=== PATIENT | male | born 1955 | race Caucasian/White ===

== ENCOUNTER 2016-10-14 13:26 | Day surgery (SDC) | payer OTHER ==
[~2016-10-14] VITALS: Ht 182.9 cm; Wt 82.0 kg
[~2016-10-14 13:26] MED LIST: DESO15CR25 TOP; DOXA4TAB2 PO; ESCI20TA PO; FENT1PAT6 TRANSDERM; FEXO-15 PO; FLUT9.9S NS; LISI-571 PO; Lactated Ringer's 1,000 ML IV ONE; MORP15TA PO; OMEP40CA36 PO; SCOP1PAT TD; SUMA50TA31 PO; TOPI50TA32 PO
[2016-10-14] MEDS ORDERED: fentaNYL-PF 50 mCg/mL 2 mL Inj ONE (13:27)
[2016-10-14] MEDS ORDERED: Propofol 10,000 mCg/mL 20 mL Inj ONE (13:27)
[2016-10-14 13:43] VITALS: BP 119/82; PULSE 95; RESP 16; O2SAT 95
[2016-10-14] MEDS ORDERED: Lactated Ringer's 1,000 ML IV ONE (14:28)
[2016-10-14 14:52] VITALS: BP 85/62; PULSE 67; RESP 14; O2SAT 92
[2016-10-14 14:57] VITALS: BP 86/64; PULSE 73; RESP 14; O2SAT 94
--- NOTE | 2016-10-14 14:59 | PCM.ANEP1 ---
Post Anesthesia PACU Phase 1 Assessment Vital Signs Vital Signs Date Time Temp Pulse Resp B/P Pulse Ox O2 Delivery O2 Flow Rate FiO2 10/14/16 14:52 67 14 85/62 92 Room Air 10/14/16 13:43 36.4 95 16 119/82 95 Room Air Anesthetic Administered: MAC Level of Alertness: Awake, talking Pain: No Nausea or Vomiting: No CV Function & Hydration Stable: Yes Airway Device: Lungs: Clear to Auscultation PACU Phase 2 Assessment Patient Instructions Provided: N/A Paco Knapp MD Oct 14, 2016 14:59
--- NOTE | 2016-10-14 14:59 | PCM.HPANE ---
Patient Data Surgeon Admitting Provider: Attending Provider:Christo Gonzalez MD Primary Care Physician:Yan Pearson MD Other Provider:Malika Leeingham Anesthesia Reason for Visit Colon Cancer Screening, Gerd Ht/WT & BMI Body Mass Index Allergies Coded Allergies: gabapentin (Verified Allergy, Severe, CHOREOATHETOSI, 10/13/16) zolpidem (Verified Allergy, Severe, SLEEP WALK, 10/13/16) Past Anesthesia History Anesthesia History: Denies:: Abnormal Airway, Anesthesia Reactions, Difficult Intubation, Fam Anesthesia Reaction, Fam Malignant Hypertherm, Malignant Hyperthermia Diabetes History Hx Diabetes?: No Medications Reported Medications Scopolamine (Transderm-Scop)1 Each Patch.td721 Each TD 10/13/16 Topiramate (Topamax)50 Mg Lrawvy20 Mg PO BID Ref 0 10/13/16 Omeprazole 40 Mg Capsule.dr40 Mg PO DAILY Ref 0 10/13/16 Morphine Sulfate 15 Mg Yrjyeq42 Mg PO 10/13/16 Lisinopril 5 Mg Tablet5 Mg PO DAILY #30 TABLET Ref 0 10/13/16 Escitalopram Oxalate (Lexapro)20 Mg Clbdyo18 Mg PO DAILY 30 Days Ref 0 10/13/16 Sumatriptan Succinate (Imitrex)50 Mg Rxzald62 Mg PO 10/13/16 Fluticasone Propionate (Flonase Allergy Relief)50 Mcg/Actuation [place].susp9.9 Ml NS 10/13/16 Fentanyl 12.5 mcg/hr Patch 1 Each Patch.td721 Patch TRANSDERM Q3D Ref 0 10/13/16 Doxazosin (Cardura)4 Mg Tablet4 Mg PO HS Ref 0 10/13/16 Desonide (Desonide Cream)15 Gm Cream..g.1 Applic TOP BID #1 TUBE Ref 0 10/13/16 Fexofenadine (Audrey Allergy)60 Mg Xbjhmf98 Mg PO BID 10/13/16 History History of ENT Problems?: No HEENT History: Denies:: Abnormal Airway Cataracts Difficult Intubation Dysphagia Glaucoma Hearing Problem Sinus Problem TMJ Denture Type: None Teeth Condition: Within Normal Limits Hx of Heart Problems?: No Cardiovascular History: Positive for:: Hypertension (LISINOPRIL ) Denies:: Congestive Heart Failure Hx of Respiratory Problem?: No Respiratory History: Denies:: Tuberculosis Hx Neurologic Problems?: Yes Neurological History: Positive for:: Headaches (MIGRAINES TAKES IMITREX) Hx of GI Problems?: Yes Hx of Problems?: No Male Hx: Denies:: Scrotal Mass Testicular Surgery Hx Musculoskeletal Problems?: Yes Hx Surgeries?: Yes (SPINAL CORD STIMULATOR ) History Blood Transfusions: Denies:: Blood Transfuse Reaction Blood Transfusions Hx Diabetes: No Hx Alcohol Use: NoHx Substance Use: No Smoking Status: Former Smoker Have You Smoked inLast 12 mo: No Stop/Bang Risk Assessment Category Category 1A: Patient has history of documented sleep apnea, and HAS NOT received any narcotic, sedative or anesthesia administration during this stay. Category 1B: Patient has history of documented sleep apnea, and HAS received any narcotic , sedative or anesthesia administration during this stay Category 2: Patient has SUSPECTED Obstructive Sleep Apnea, and HAS received any narcotic , sedative or anesthesia administration during this stay. Category 3: Patient has SUSPECTED Obstructive Sleep Apnea and HAS NOT received narcotic, sedative or anesthesia administration during this stay. Category 4: Outpatient in Procedural Areas with known sleep apnea or who screen positive for High Risk via the STOP/BANG questionnaire. Exam Exam General Appearance: Alert, Oriented X3, Cooperative, No Acute Distress HEENT/AIRWAY: MP 2 Lungs: Clear to Auscultation Heart: Exam Unremarkable Plan Impression Patient chart reviewed, patient interviewed and anesthestic plan with risks, benefits, and alternatives discussed, and informed consent obtained. ASA Physical Status: ASA3 Severe Disease Anesthetic Plan: MAC Bene/Risks/Altern/Consents: Yes HP Complete Prior to Induction: Yes Paco Knapp MD Oct 14, 2016 09:53
[2016-10-14 15:04] VITALS: BP 94/62; PULSE 64; RESP 15; O2SAT 92
--- NOTE | 2016-10-14 15:54 | ENDO ---
[address] [address] ENDOSCOPY PROCEDURE PATIENT: VEE MCKEON : 1955 MR#: [id number] ADMIT: 10/14/2016 JOB ID: [id number] DATE OF SERVICE: 10/14/2016 TYPE OF OPERATION: Esophagogastroduodenoscopy with biopsy. Colonoscopy with hot snare polypectomy. PREOPERATIVE DIAGNOSIS(ES): Gastroesophageal reflux disease, colorectal cancer screening. POSTOPERATIVE DIAGNOSIS(ES): 1. Mild nonerosive gastritis. 2. Mild bile reflux. 3. Suboptimal prep. 4. A 1 cm rectal poly, removed by hot snare polypectomy. ANESTHESIA: Monitored anesthesia care. COMPLICATIONS: None. BLOOD LOSS: Minimal. DESCRIPTION OF PROCEDURE: After risks and benefits explained to the patient, informed consent was obtained. After anesthesia administered, upper endoscope was then inserted through the mouth, intubated in the esophagus, stomach, second portion of duodenum, and mucosa carefully examined. After procedure, the scope withdrawn, procedure terminated. Colonoscope was then inserted from rectum to the cecum. Mucosa carefully examined. Prep of the patient was suboptimal. After procedure, the scope was withdrawn and procedure terminated. FINDINGS: Upon inspection of esophagus, esophagus was normal with no masses, ulcers, or lesions. Z-line located at 45 cm from incisors. Upon entering the stomach, there was mild bile reflux and mild nonerosive gastritis that was seen. No masses or ulcers were seen. Retroflexion normal. Duodenal bulb, 1st and 2nd portion were normal. Biopsies taken of antrum, body and distal esophagus. Upon inspection of the anus, no masses, hemorrhoids, ulcers, or fissures that were seen throughout the entire examination. There was suboptimal prep. A lot of liquid stool was seen throughout the entire colon which was suctioned quite a bit. There was a 1 cm rectal polyp removed by hot snare polypectomy. Retroflexion was normal. IMPRESSIONS: 1. Mild nonerosive gastritis. 2. Mild bile reflux. 3. Suboptimal prep. 4. A 1 cm rectal polyp removed by hot snare polypectomy. RECOMMENDATIONS: Await pathology results. If tubular adenoma, then recommended next colonoscopy in three years. Otherwise, next colonoscopy in five years. Would recommend a two-day prep for the next colonoscopy. Follow up in GI clinic with Andrés Scott PA-C, as an outpatient.
--- NOTE | 2016-10-16 14:25 | PATH ---
SURGICAL PATHOLOGY Attending Physician:Christo Gonzalez MD CASE STATUS: Signed Out PATIENT NAME: VEE MCKEON PID: [id number] : 1955 DATE COLLECTED:10/14/2016 00:00 SPECIMEN: 1: Stomach, Antrum, Biopsy 2: Gastric, Biopsy 3: Esophagus, Biopsy 4: Rectum, Biopsy CLINICAL HISTORY: 1. ANTRUM 2. GASTRIC BODY 3. DISTAL ESOPHAGUS 4. RECTAL POLYP FINAL DIAGNOSIS: 1.GASTRIC ANTRUM BIOPSY: CHANGES CONSISTENT WITH REACTIVE GASTROPATHY. Negative for evidence of Helicobacter on H&E stain. Negative for intestinal metaplasia. Negative for dysplasia and malignancy. 2.GASTRIC BODY BIOPSIES: FRAGMENTS OF GASTRIC FUNDIC MUCOSA, NEGATIVE FOR SIGNIFICANT INFLAMMATION. Negative for evidence of Helicobacter on H&E stain. Negative for intestinal metaplasia. Negative for dysplasia and malignancy. 3.DISTAL ESOPHAGUS BIOPSY: SQUAMOUS EPITHELIUM WITH SCATTERED INTRAEPITHELIAL EOSINOPHILS CONSISTENT WITH CHANGES SECONDARY TO CHRONIC REFLUX. No gastric-type mucosa identified. Negative for dysplasia and malignancy. 4.RECTAL POLYP: POLYPOID MIXED TUBULAR AND VILLIFORM ADENOMA. ICD10 D12.8 GROSS DESCRIPTION: The specimen is received in four formalin filled containers labeled with the patient's name. 1). The specimen is sublabeled "antrum" and consists of a 0.3 x 0.3 x 0.2 CM portion of tissue. The specimen is entirely submitted in cassette 1A. 2). The specimen is sublabeled "gastric body" and consists of 2 portions of tissue which aggregate to 0.4 x 0.4 x 0.2 CM. The specimen is entirely submitted in cassettes 2A. 3). The specimen is sublabeled "distal esophagus" and consists of a 0.3 x 0.2 x 0.2 CM portion of tissue which is entirely submitted in cassette 3A. 4). The specimen is sublabeled "rectal polyp" and consists of multiple portions of tissue which aggregate to 0.6 x 0.6 x 0.6 CM. The largest piece is bisected. All fragments entirely submitted in cassette 4A. 10/15/2016 [facility] MICRO DESCRIPTION: See diagnosis. ICD-9 CODES: CPT CODES: 1: 78131 2: 28180 3: 10687 4: 29584 Electronically Signed Out Deangelo Vargas MD [facility] [address], [place] [address] Technical component performed at [facility], [address], [place], [address]
== END 2016-10-14 23:59 | disposition home or self-care (01) ==
LOC: END 13:26
PROVIDERS: ATTEND Internal Medicine Gastroenterology
DX: Z12.11 Encounter for screening for malignant neoplasm of colon (principal); D12.8 Benign neoplasm of rectum; K31.9 Disease of stomach and duodenum, unspecified; K21.9 Gastro-esophageal reflux disease without esophagitis; I10 Essential (primary) hypertension; E78.5 Hyperlipidemia, unspecified; J30.9 Allergic rhinitis, unspecified; N40.0 Benign prostatic hyperplasia without lower urinary tract symptoms; M54.9 Dorsalgia, unspecified; G89.29 Other chronic pain; Z79.891 Long term (current) use of opiate analgesic; Z87.891 Personal history of nicotine dependence
CPT/HCPCS: 43239; 45385; J2250; J3010; J7120